=== PATIENT | female | born 2000 | race Caucasian/White ===

== ENCOUNTER 2019-02-20 18:31 | Emergency (ER) | payer MEDICAID ==
[~2019-02-20] VITALS: Ht 160 cm; Wt 50.0 kg
[2019-02-20 19:00] VITALS: BP 103/64
[2019-02-20 19:29] LABS: EOSINOPHILS % 7.4 % (0.0-5.0); HEMATOCRIT. 35.9 % (36.0-48.0); HEMOGLOBIN. 12.3 g/dL (12.0-16.0); LYMPHOCYTES % 41.9 % (20.0-50.0); MEAN CORPUSCULAR HEMOGLOBIN 30.5 pg (28.0-32.0); MEAN CORPUSCULAR VOLUME 89.2 fL (81.0-99.0); MEAN PLATELET VOLUME 8.9 fl (7.4-10.4); MONOCYTES % 8.2 % (2.0-8.0); NEUTROPHILS % 41.5 % (40.0-76.0); PLATELET 245 x1000/uL (130-400); RED BLOOD CELL COUNT 4.02 mill/uL (4.2-5.4); RED CELL DISTRIBUTION WIDTH 12.5 % (11.6-14.6)
[2019-02-20 19:31] LABS: CHLORIDE 109 mEq/L (98-107)
[2019-02-20 19:43] LABS: HCG SCREEN NEGATIVE
[2019-02-20 20:46] LABS: CLARITY URINE CLEAR (CLEAR); COLOR URINE YELLOW (YELLOW); KETONES URINE NEGATIVE (NEGATIVE); LEUKOCYTE ESTERASE URINE NEGATIVE (NEGATIVE); NITRITE URINE NEGATIVE (NEGATIVE); OCCULT BLOOD URINE NEGATIVE (NEGATIVE); PROTEIN URINE NEGATIVE (NEGATIVE); UROBILINOGEN URINE 0.2 E.U./dL (0.2-1.0)
== END 2019-02-20 23:13 | disposition home or self-care (01) ==
LOC: ER 18:45
DX: N83.201 Unspecified ovarian cyst, right side (principal); R06.02 Shortness of breath; R42 Dizziness and giddiness; Z88.0 Allergy status to penicillin
CPT/HCPCS: 36415; 76830; 76856; 81003; 81025; 84703; 99284

== ENCOUNTER 2022-09-16 14:05 | Emergency (ER) | payer MEDICAID ==
[~2022-09-16] VITALS: Ht 162.6 cm; Wt 75.0 kg
[2022-09-16 16:15] VITALS: BP 125/77
[2022-09-16] MEDS ORDERED: DEXAMETHASONE 4MG TABLET PO ONE (16:15)
[2022-09-16] MEDS ORDERED: ACETAMINOPHEN 325MG TABLET PO ONE (16:15)
[2022-09-16] MEDS ORDERED: IBUPROFEN 400MG TABLET PO ONE (16:15)
[2022-09-16] MEDS ORDERED: TOPUD PO (17:53)
[2022-09-16] MEDS ORDERED: IBUP-2028 MT (17:53)
== END 2022-09-16 19:01 | disposition home or self-care (01) ==
LOC: ER 14:05
DX: J02.9 Acute pharyngitis, unspecified (principal); R09.81 Nasal congestion; Z20.822 Contact with and (suspected) exposure to COVID-19
CPT/HCPCS: 81025; 87070; 87426; 87430; 87804; 99284; C9803; J8540

== ENCOUNTER 2024-02-07 21:09 | Emergency (ER) | payer MEDICAID ==
[~2024-02-07] VITALS: Ht 154.9 cm; Wt 54.0 kg
[~2024-02-07 21:09] MED LIST: IBUP-2028 MT; TOPUD PO
[2024-02-07 21:18] VITALS: TEMP 98.6
[2024-02-07] MEDS ORDERED: THROAT LOZENGES-BENZOCAINE/MENTH/CETYLPYRD CL LOZENGES MM PRN (23:00)
[2024-02-07 23:41] VITALS: PULSE 84; RESP 16; O2SAT 99
[2024-02-07] MEDS: ALBUTEROL (0.083%) 2.5MG/3ML NEB HHN ONE (23:41)
[2024-02-07 23:42] LABS: BASOPHILS % 0.6 % (0.0-2.0); EOSINOPHILS % 4.3 % (0.0-5.0); HEMATOCRIT. 39.5 % (36.0-48.0); HEMOGLOBIN. 13.6 g/dL (12.0-16.0); LYMPHOCYTES % 34.3 % (20.0-50.0); MEAN CORPUSCULAR HEMOGLOBIN 30.7 pg (28.0-32.0); MEAN CORPUSCULAR HGB CONC 34.4 g/dL (31.0-37.0); MEAN CORPUSCULAR VOLUME 89.1 fL (81.0-99.0); MONOCYTES % 7.8 % (2.0-8.0); PLATELET 336 x1000/uL (130-400); RED BLOOD CELL COUNT 4.44 mill/uL (4.2-5.4); WHITE BLOOD COUNT 8.4 x1000/uL (4.5-11.0)
[2024-02-07 23:55] LABS: CHLORIDE 106 mEq/L (98-107); POTASSIUM 3.6 mEq/L (3.5-5.1); SODIUM 139 mEq/L (136-145)
[2024-02-07 23:56] LABS: CARBON DIOXIDE 25 mEq/L (21-32)
[2024-02-07 23:57] LABS: CALCIUM 9.4 mg/dL (8.7-10.4)
[2024-02-08] LABS: HCG SCREEN NEGATIVE
[2024-02-08] MEDS: GUAIFENESIN-DM 200MG-20MG/10ML UDC PO ONE
[2024-02-08 00:01] LABS: CREATININE 0.7 mg/dL (0.6-1.0); GLUCOSE 92 mg/dL (70-105)
[2024-02-08] MEDS: SODIUM CHLORIDE 0.9% 1,000 ML IV ONE ×2 (00:01)
[2024-02-08 00:03] LABS: ALANINE AMINOTRANSFERASE 18 IU/L (10-49); ALBUMIN 4.6 g/dL (3.2-4.8); ASPARTATE AMINOTRANSFERASE 22 IU/L (<34)
[2024-02-08 00:04] LABS: BILIRUBIN TOTAL 0.6 mg/dL (0.1-1.0); PROTEIN TOTAL 7.5 g/dL (6.0-8.3)
[2024-02-08] MEDS: ONDANSETRON HCL 4MG/2ML INJ IV ONE (00:15)
[2024-02-08] MEDS: KETOROLAC 15MG/ML VIAL IV ONE (00:15)
[2024-02-08 00:21] LABS: UREA NITROGEN BLOOD < 5 mg/dL (9-23)
[2024-02-08] MEDS: DEXAMETHASONE 4MG/ML 1ML VIAL IV ONE (00:34)
[2024-02-08] MEDS ORDERED: METH4TAB95 MT (01:05)
[2024-02-08] MEDS ORDERED: ONDA-239 PO (01:05)
[2024-02-08] MEDS ORDERED: TOPUD PO (01:05)
[2024-02-08] MEDS ORDERED: BROM118S47 PO (01:05)
[2024-02-08] MEDS ORDERED: IBUP-2029 MT (01:05)
[2024-02-08] MEDS ORDERED: ALBU6.7H15 INH (01:05)
[2024-02-08 01:33] VITALS: BP 106/69; PULSE 60; RESP 18; O2SAT 100
== END 2024-02-08 01:30 | disposition home or self-care (01) ==
LOC: ER 21:09
DX: B34.9 Viral infection, unspecified (principal); J02.9 Acute pharyngitis, unspecified; E86.0 Dehydration; Z79.899 Other long term (current) drug therapy; Z88.0 Allergy status to penicillin; Z20.822 Contact with and (suspected) exposure to COVID-19
CPT/HCPCS: 80053; 84703; 83690; 85025; 36415; 71045; 94640; 99284; 87426; 96361; 96374; 96375; J1100 ×2; J1885; J2405; Z7610 ×4; J7030